=== PATIENT | male | born 1965 | race Caucasian/White ===

== ENCOUNTER 2017-05-19 05:44 | Day surgery (SDC) | payer BC ==
[2017-05-17 15:36] VITALS: BP 164/114
[2017-05-17 16:42] LABS: HEMATOCRIT 48.8 % (39.2-51.8); HEMOGLOBIN 17.1 g/dL (13.7-18.0); WHITE BLOOD COUNT 11.5 x10^3/uL (3.4-10)
[2017-05-17 16:55] LABS: BLOOD UREA NITROGEN 14 mg/dL (7-18)
[2017-05-17 16:58] LABS: ASPARTATE AMINO TRANSFERASE 34 U/L (15-37)
[~2017-05-19] VITALS: Ht 175.3 cm; Wt 98.0 kg
[~2017-05-19 05:44] MED LIST: AMLO10TA2 PO; AMLO5TAB2 PO; ESCI10TA PO; ESCI20TA10 PO; HYDR25TA6 PO; LOSA25TA5 PO; LOSA50TA6 PO
[2017-05-19] MEDS ORDERED: LIDOCAINE 1%, 2ML ONE (06:10)
[2017-05-19] MEDS ORDERED: LACTATED RINGERS 1,000 ML IV SCH (06:26)
[2017-05-19] MEDS ORDERED: LIDOCAINE 1%, 2ML SQ PRN (06:30)
== END 2017-05-19 08:45 | disposition home or self-care (01) ==
LOC: OUT 05:44
PROVIDERS: ATTEND Urology
DX: N28.89 Other specified disorders of kidney and ureter (principal)
CPT/HCPCS: 36415; 50593; 77013; 80053; 81003; 85025; 87086; J3490; J7120